=== PATIENT | female | born 1940 | race Caucasian/White ===

== ENCOUNTER 2023-10-09 19:42 | Emergency (ER) | payer MEDICARE ==
[~2023-10-09] VITALS: Ht 162.6 cm; Wt 83.9 kg
[~2023-10-09 19:42] MED LIST: CEFDINIR300 MG PO; CIPRO500 MG PO; CYMBALTA20 MG PO; DIOVAN80 MG PO; DITROPAN XL5 MG PO; FLAGYL250 MG PO; IBUPROFEN400 MG PO; LEXAPRO10 MG PO; NORCO 5-325 TA1 EACH PO; SIMVASTATIN20 MG PO; SYNTHROID88 MCG PO; ZOFRAN ODT4 MG SL
[2023-10-09 20:33] LABS: BASOPHILS # (AUTO) 0.1 (0.0-0.1); BASOPHILS % 1.3 % (0.0-1.0); EOSINOPHILS # (AUTO) 0.3 (0.0-0.4); EOSINOPHILS % 3.6 % (0.0-6.0); HEMATOCRIT 42.2 % (34.2-44.1); HEMOGLOBIN 14.4 g/dL (12.0-16.0); LYMPHOCYTES # (AUTO) 2.4 (1.0-3.2); LYMPHOCYTES % 28.5 % (18.0-39.1); MEAN CORPUSCULAR HEMOGLOBIN 31.9 pg (28-32); MEAN CORPUSCULAR HGB CONC 34.1 g/dL (31-35); MEAN CORPUSCULAR VOLUME 93.6 fL (81-99); MONOCYTES # (AUTO) 1.1 (0.2-0.8); MONOCYTES % 12.6 % (4.4-11.3); NEUTROPHILS # (AUTO) 4.5 (2.1-6.9); NEUTROPHILS % 53.6 % (38.7-80.0); PLATELET COUNT 222 x10e3/uL (140-360); RED BLOOD COUNT 4.51 x10e6/uL (3.6-5.1); RED CELL DISTRIBUTION WIDTH 13.4 % (11.7-14.4); WHITE BLOOD COUNT 8.38 x10e3/uL (4.8-10.8)
[2023-10-09 20:49] LABS: ALANINE AMINOTRANSFERASE 31 IU/L (0-55); ALBUMIN 3.7 g/dL (3.5-5.0); ALBUMIN/GLOBULIN RATIO 1.2 (0.8-2.0); ALKALINE PHOSPHATASE 105 IU/L (40-150); ANION GAP 15.1 mmol/L (8-16); BILIRUBIN,TOTAL 0.3 mg/dL (0.2-1.2); BLOOD UREA NITROGEN 20 mg/dL (7-26); BUN/CREATININE RATIO 28 (6-25); CALCIUM 11.1 mg/dL (8.4-10.2); CARBON DIOXIDE 24 mmol/L (22-29); CHLORIDE 107 mmol/L (98-107); CREATININE, SERUM 0.71 mg/dL (0.57-1.11); EST GLOMERULAR FILTRATION RATE 85 ML/MIN (>=60); GLUCOSE 99 mg/dL (74-118); POTASSIUM 4.1 mmol/L (3.5-5.1); SODIUM 142 mmol/L (136-145); TOTAL PROTEIN 6.9 g/dL (6.5-8.1)
[2023-10-09 20:57] LABS: TROPONIN I < 0.001 ng/mL (0-0.300)
[2023-10-09 20:59] LABS: BILIRUBIN,URINE NEGATIVE (NEGATIVE); CLARITY,URINE CLEAR (CLEAR); COLOR,URINE YELLOW (YELLOW); GLUCOSE, URINE NEGATIVE (NEGATIVE); KETONES,URINE NEGATIVE (NEGATIVE); LEUKOCYTE ESTERASE ,URINE NEGATIVE (NEGATIVE); NITRITE,URINE NEGATIVE (NEGATIVE); PH,URINE 6 (5 - 7); PROTEIN,URINE DIPSTICK NEGATIVE (NEGATIVE); URINE UROBILINOGEN 0.2 mg/dL (0.2 - 1)
[2023-10-09 21:13] LABS: BACTERIA,URINE FEW /HPF; EPITHELIAL CELLS,URINE FEW /LPF; RBC,URINE 0-5 /HPF (0-5); TRANSITIONAL EPI CELLS,URINE FEW
[2023-10-09] MEDS: ACETAMINOPHEN/CODEINE 300MG - 30MG TAB PO ONE (21:44)
[2023-10-09] MEDS ORDERED: ACETAMINOPHEN/CODEINE 300MG - 30MG TAB ONE (21:46)
[2023-10-09] MEDS ORDERED: HYDROXYZINE PAMOATE 25 MG CAP PO STA (22:15)
[2023-10-09] MEDS ORDERED: HYDROXYZINE HCL 25 MG TAB ONE ×2 (22:29→22:56)
[2023-10-09] MEDS ORDERED: ONDANSETRON HCL 4 MG ORAL DISINTEGRATING TAB ONE (22:54)
[2023-10-09] MEDS: HYDROXYZINE HCL 25 MG TAB PO ONE (22:54)
[2023-10-09] MEDS: ONDANSETRON HCL 4 MG ORAL DISINTEGRATING TAB PO ONE (22:54)
[2023-10-09 23:05] VITALS: BP 168/101; O2SAT 100
[2023-10-10] MEDS ORDERED: HYDROXYZINE HCL 25 MG TAB ONE (19:47)
[2023-10-10] MEDS ORDERED: ACETAMINOPHEN/CODEINE 300MG - 30MG TAB ONE (19:47)
[2023-10-10] MEDS ORDERED: ONDANSETRON HCL INJ 2MG/ML 2ML 2 MG/ML VIAL ONE (19:47)
== END 2023-10-09 23:07 | disposition home or self-care (01) ==
LOC: ER 19:55
DX: F11.23 Opioid dependence with withdrawal (principal); I10 Essential (primary) hypertension; E78.5 Hyperlipidemia, unspecified; F41.9 Anxiety disorder, unspecified; M54.9 Dorsalgia, unspecified; G89.29 Other chronic pain; Z87.19 Personal history of other diseases of the digestive system
CPT/HCPCS: 36415; 80053; 81001; 84484; 85025; 93005; 99284; J2405; J3410; Q0162; Q0177

== ENCOUNTER 2024-09-24 10:18 | Emergency (ER) | payer MEDICARE ==
[~2024-09-24] VITALS: Ht 162.6 cm; Wt 83.9 kg
[2024-09-24 10:22] VITALS: TEMP 98.9
[2024-09-24 11:06] LABS: BASOPHILS # (AUTO) 0.1 (0.0-0.1); BASOPHILS % 0.7 % (0.0-1.0); EOSINOPHILS # (AUTO) 0.1 (0.0-0.4); EOSINOPHILS % 1.2 % (0.0-6.0); HEMATOCRIT 42.5 % (34.2-44.1); LYMPHOCYTES # (AUTO) 1.9 (1.0-3.2); LYMPHOCYTES % 23.8 % (18.0-39.1); MEAN CORPUSCULAR HEMOGLOBIN 31.1 pg (28-32); MEAN CORPUSCULAR HGB CONC 32.9 g/dL (31-35); MEAN CORPUSCULAR VOLUME 94.4 fL (81-99); MONOCYTES # (AUTO) 0.7 (0.2-0.8); MONOCYTES % 8.2 % (4.4-11.3); NEUTROPHILS # (AUTO) 5.3 (2.1-6.9); PLATELET COUNT 248 x10e3/uL (140-360); RED CELL DISTRIBUTION WIDTH 12.9 % (11.7-14.4); WHITE BLOOD COUNT 8.01 x10e3/uL (4.8-10.8)
[2024-09-24] MEDS: SODIUM CHLORIDE 0.9% 1000ML 1,000 ML IV STA (11:06)
[2024-09-24] MEDS: KETOROLAC TROMETHAMINE 30 MG/ML VIAL IV STA (11:07)
[2024-09-24] MEDS: DICYCLOMINE HCL 20 MG/2 ML VIAL IM ONE (11:07)
[2024-09-24 11:21] LABS: ALBUMIN 4.1 g/dL (3.5-5.0); ALBUMIN/GLOBULIN RATIO 1.8 (0.8-2.0); BILIRUBIN,TOTAL 0.8 mg/dL (0.2-1.2); CALCIUM 10.5 mg/dL (8.4-10.2); CREATININE, SERUM 0.74 mg/dL (0.57-1.11); TOTAL PROTEIN 6.4 g/dL (6.5-8.1)
[2024-09-24 11:30] VITALS: PULSE 94; RESP 20
[2024-09-24] MEDS ORDERED: IOPAMIDOL 370 MG/ML 100 ML INFUS..BTL INJ ONE (11:50)
[2024-09-24 12:02] LABS: CLARITY,URINE CLEAR (CLEAR); COLOR,URINE YELLOW (YELLOW)
[2024-09-24 12:03] LABS: BILIRUBIN,URINE NEGATIVE (NEGATIVE); GLUCOSE, URINE NEGATIVE (NEGATIVE); KETONES,URINE 2+ (NEGATIVE); LEUKOCYTE ESTERASE ,URINE NEGATIVE (NEGATIVE); NITRITE,URINE NEGATIVE (NEGATIVE); PH,URINE 5.5 (5 - 7); PROTEIN,URINE DIPSTICK NEGATIVE (NEGATIVE); URINE UROBILINOGEN 0.2 mg/dL (0.2 - 1)
[2024-09-24 12:19] LABS: BACTERIA,URINE FEW /HPF; EPITHELIAL CELLS,URINE MANY /LPF; RBC,URINE 0-5 /HPF (0-5)
[2024-09-24] MEDS ORDERED: ONDANSETRON ODT4 MG PO (12:35)
[2024-09-24] MEDS ORDERED: DICYCLOMINE HCL20 MG PO (12:35)
[2024-09-24 12:49] VITALS: BP 147/76; PULSE 78; RESP 17; O2SAT 98
== END 2024-09-24 12:47 | disposition home or self-care (01) ==
LOC: ER 10:24
DX: R10.32 Left lower quadrant pain (principal); R19.7 Diarrhea, unspecified; I10 Essential (primary) hypertension; E78.5 Hyperlipidemia, unspecified; E03.9 Hypothyroidism, unspecified; F41.9 Anxiety disorder, unspecified; F32.A Depression, unspecified; M54.9 Dorsalgia, unspecified; G89.29 Other chronic pain; Z87.19 Personal history of other diseases of the digestive system
CPT/HCPCS: 36415; 74177; 80053; 81001; 85025; 99284; J0500; J1885; J7030; Q9967

== ENCOUNTER 2025-04-19 09:05 | Emergency (ER) | payer MEDICARE ==
[~2025-04-19] VITALS: Ht 160 cm; Wt 80.3 kg
[~2025-04-19 09:05] MED LIST changes: +DICYCLOMINE HCL20 MG PO; +ONDANSETRON ODT4 MG PO
[2025-04-19 09:08] VITALS: TEMP 97.7
[2025-04-19] MEDS ORDERED: SODIUM CHLORIDE 0.9% 1000ML 1,000 ML IV SCH (09:15)
[2025-04-19 09:28] LABS: BASOPHILS % 1.0 % (0.0-1.0); EOSINOPHILS % 2.0 % (0.0-6.0); LYMPHOCYTES % 20.7 % (18.0-39.1); MONOCYTES % 10.2 % (4.4-11.3); NEUTROPHILS % 66.0 % (38.7-80.0); RED CELL DISTRIBUTION WIDTH 13.1 % (11.7-14.4)
[2025-04-19 10:31] LABS: EST GLOMERULAR FILTRATION RATE 91 ML/MIN (>=60)
[2025-04-19] MEDS: LIDOCAINE VISC 2% SOLN 15 ML UDC PO ONE (10:38)
[2025-04-19] MEDS: BELLADONNA ALK/PHENOBARBITAL 5 ML UDC PO STA (10:38)
[2025-04-19] MEDS: MAGNESIUM/ALUMINUM/SIMETHICONE 30 ML UDC PO ONE (10:38)
[2025-04-19] MEDS ORDERED: IOPAMIDOL 370 MG/ML 100 ML INFUS..BTL INJ ONE (10:57)
[2025-04-19 11:19] LABS: EPITHELIAL CELLS,URINE FEW /LPF; LEUKOCYTE ESTERASE ,URINE NEGATIVE (NEGATIVE); PROTEIN,URINE DIPSTICK NEGATIVE (NEGATIVE); URINE UROBILINOGEN 0.2 mg/dL (0.2 - 1)
[2025-04-19 12:00] VITALS: PULSE 81; RESP 19; O2SAT 98
[2025-04-19 12:51] VITALS: BP 142/85; PULSE 82; RESP 18; TEMP 98.6
== END 2025-04-19 12:59 | disposition home or self-care (01) ==
LOC: ER 09:15
DX: K21.9 Gastro-esophageal reflux disease without esophagitis (principal); R10.32 Left lower quadrant pain; I10 Essential (primary) hypertension; E78.5 Hyperlipidemia, unspecified; E03.9 Hypothyroidism, unspecified; F41.9 Anxiety disorder, unspecified; F32.A Depression, unspecified; M54.9 Dorsalgia, unspecified; G89.29 Other chronic pain; Z87.19 Personal history of other diseases of the digestive system
CPT/HCPCS: 36415; 71045; 74177; 80053; 81001; 83690; 84484; 85025; 87086; 93005; 99284; J2470; J7030; Q9967